=== PATIENT | female | born 1990 | race Caucasian/White ===

== ENCOUNTER 2018-08-21 16:40 | Emergency (ER) ==
[2018-08-21 16:59] VITALS: BP 89/71; TEMP 98; BMI 20.3
== END 2018-08-21 19:16 | disposition left against medical advice (07) ==
LOC: ED 16:40
DX: M79.604 Pain in right leg (principal); S81.841A Puncture wound with foreign body, right lower leg, initial encounter; W32.0XXA Accidental handgun discharge, initial encounter

== ENCOUNTER 2018-08-24 17:25 | Emergency (ER) ==
[2018-08-24 17:26] VITALS: BMI 20.3
[2018-08-24 17:31] VITALS: BP 102/70; TEMP 98.2
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
== END 2018-08-24 21:46 | disposition home or self-care (01) ==
LOC: ED 17:25
DX: S81.841A Puncture wound with foreign body, right lower leg, initial encounter (principal); L02.415 Cutaneous abscess of right lower limb; W34.00XA Accidental discharge from unspecified firearms or gun, initial encounter; F17.210 Nicotine dependence, cigarettes, uncomplicated
CPT/HCPCS: 99282